=== PATIENT | female | born 1955 | race American Indian/Alaskan Native ===

== ENCOUNTER 2020-07-17 14:18 | Emergency (ER) | payer MEDICAID ==
[2020-07-17 16:38] VITALS: BP 131/85
--- NOTE | 2020-07-17 16:40 | Emergency Department Report ---
Blank Doc - Documentation Documentation: 64-year-old female that presents with cough and SOB. Close contact with COVID. This initial assessment/diagnostic orders/clinical plan/treatment(s) is/are subject to change based on patient's health status, clinical progression and re- assessment by fellow clinical providers in the ED. Further treatment and workup at subsequent clinical providers discretion. Patient/guardians urged not to elope from the ED as their condition may be serious if not clinically assessed and managed. Initial orders include: 1- Patient sent to MAIN ED for further evaluation and treatment 2- labs 3- CXR
--- NOTE | 2020-07-17 17:08 | XRay Report ---
CHEST 2 VIEWS INDICATION / CLINICAL INFORMATION: cough. COMPARISON: None available. FINDINGS: SUPPORT DEVICES: None. HEART / MEDIASTINUM: No significant abnormality. LUNGS / PLEURA: No significant pulmonary or pleural abnormality. No pneumothorax. ADDITIONAL FINDINGS: No significant additional findings. IMPRESSION: 1. No acute abnormality of the chest. Signer Name: Trevon Leggett MD Signed: 07/17/2020 5:03 PM Workstation Name: [id number]
[2020-07-17 17:42] LABS: Basophils # (Auto) 0.1 K/mm3 (0.0-0.1); Basophils % (Auto) 1.3 % (0.0-1.8); Eosinophils # (Auto) 0.1 K/mm3 (0.0-0.4); Eosinophils % (Auto) 0.9 % (0.0-4.3); Hematocrit 43.8 % (30.3-42.9); Lymphocytes # (Auto) 3.2 K/mm3 (1.2-5.4); Lymphocytes % (Auto) 44.6 % (13.4-35.0); Mean Corpuscular HGB Conc 34 % (30-34); Mean Corpuscular Volume 90 fl (79-97); Monocytes # (Auto) 0.6 K/mm3 (0.0-0.8); Monocytes % (Auto) 8.6 % (0.0-7.3); Platelet Count 346 K/mm3 (140-440); Red Blood Count 4.85 M/mm3 (3.65-5.03); Red Cell Distribution Width 13.5 % (13.2-15.2)
[2020-07-17 17:51] LABS: INR 0.9 (0.87-1.13)
[2020-07-17 18:03] LABS: Alanine Aminotransferase 36 units/L (7-56); Albumin 4.2 g/dL (3.9-5); BUN/Creatinine Ratio 17; Blood Urea Nitrogen 19 mg/dL (7-17); Calcium 9.9 mg/dL (8.4-10.2); Hemolysis Index 12
--- NOTE | 2020-07-17 18:14 | Emergency Department Report ---
ED General Adult HPI - General Chief complaint: Upper Respiratory Infection Stated complaint: COUGH Time Seen by Provider: 07/17/20 16:39 Source: patient Mode of arrival: Ambulatory Limitations: No Limitations - History of Present Illness Initial comments: 64-year-old female presents to ED for COVID testing. Patient states her sister, whom she lives with, tested positive for COVID-19 on yesterday. Patient reports cough, but states it is her chronic smoker's cough. She denies any fever, shortness of breath, vomiting, diarrhea. Patient states her sister insisted that she get tested. -: unknown Improves with: none Worsens with: none Associated Symptoms: denies: chest pain, fever/chills, shortness of breath - Related Data Allergies Allergy/AdvReac Type Severity Reaction Status Date / Time No Known Allergies Allergy Unverified 07/17/20 14:28 ED Review of Systems ROS: Stated complaint: COUGH Other details as noted in HPI Comment: All other systems reviewed and negative Constitutional: denies: fever Respiratory: cough. denies: shortness of breath Gastrointestinal: denies: vomiting, diarrhea ED Past Medical Hx - Past Medical History Previous Medical History?: Yes Hx Hypertension: Yes Additional medical history: hypothyroid - Surgical History Past Surgical History?: Yes Hx Appendectomy: Yes - Social History Smoking Status: Current Every Day Smoker Substance Use Type: None ED Physical Exam - General Limitations: No Limitations General appearance: alert, in no apparent distress - Head Head exam: Present: atraumatic, normocephalic - Eye Eye exam: Present: normal appearance, EOMI - ENT ENT exam: Present: mucous membranes moist - Neck Neck exam: Present: normal inspection - Respiratory Respiratory exam: Present: normal lung sounds bilaterally. Absent: respiratory distress - Cardiovascular Cardiovascular Exam: Present: regular rate, normal rhythm - GI/Abdominal GI/Abdominal exam: Present: soft. Absent: distended, tenderness - Extremities Exam Extremities exam: Present: normal inspection - Neurological Exam Neurological exam: Present: alert, oriented X3 - Psychiatric Psychiatric exam: Present: normal affect, normal mood - Skin Skin exam: Present: warm, dry, intact, normal color ED Course Vital Signs 07/17/20 14:28 Temperature 98.4 F Pulse Rate 94 H Respiratory 16 Rate Blood Pressure 131/85 O2 Sat by Pulse 99 Oximetry ED Medical Decision Making - Lab Data Result diagrams: 07/17/20 17:16 07/17/20 17:16 - Radiology Data Radiology results: report reviewed, image reviewed - Medical Decision Making 64-year-old female presents to ED for COVID-19 testing. Patient reports her sister tested positive on yesterday. Patient reports a chronic smoker's cough, otherwise denies any other symptoms. She denies any shortness of breath. Patient is in no respiratory distress, O2 sats are normal. Chest x-ray is negative. She will be discharged at this time. Patient has been advised to obtain outpatient COVID testing. Return precautions given. - Differential Diagnosis Pneumonia, chronic sob, COVID-19 Critical care attestation.: If time is entered above; I have spent that time in minutes in the direct care of this critically ill patient, excluding procedure time. ED Disposition Clinical Impression: Suspected 2019 novel coronavirus infection Disposition: - TO HOME OR SELFCARE Is pt being admited?: No Condition: Stable Instructions: COVID-19 Additional Instructions: Your chest x-ray is normal. Please obtain outpatient COVID-19 testing. Return to the emergency room if your symptoms worsen. Referrals: VIJAY MOTA MD [Primary Care Provider] - 3-5 Days [facility] [Provider Group] - 3-5 Days EMILY GLEASON MD [Staff Physician] - 3-5 Days Time of Disposition: 18:12
== END 2020-07-17 18:17 | disposition home or self-care (01) ==
LOC: ED 14:18
DX: Z20.828 Contact with and (suspected) exposure to other viral communicable diseases (principal); I10 Essential (primary) hypertension; F17.200 Nicotine dependence, unspecified, uncomplicated; Z90.49 Acquired absence of other specified parts of digestive tract; E03.9 Hypothyroidism, unspecified
CPT/HCPCS: 36415; 71046; 80053; 84484; 85025; 85610; 85730; 93005